=== PATIENT | female | born 1995 | race Caucasian/White ===

== ENCOUNTER → 2020-11-15 | Outpatient (CLI) | payer OTHER ==
[2020-11-15 16:11] LABS: BASO # 0.1 x10^3/uL (0.0-0.2); BASO % 1 % (0-3); EOS # 0.1 x10^3/uL (0.0-0.7); EOS % 1 % (0-3); HEMATOCRIT 40.5 % (36.0-47.0); HEMOGLOBIN 13.9 g/dL (12.0-15.5); LYMPH # 2.4 x10^3/uL (1.0-4.8); LYMPH % 24 % (24-48); MEAN CORPUSCULAR HEMOGLOBIN 30 pg (25-35); MEAN CORPUSCULAR HGB CONC 34 g/dL (31-37); MEAN CORPUSCULAR VOLUME 88 fL (79-100); MONO # 0.9 x10^3/uL (0.0-1.1); MONO % 8 % (0-9); NEUT # 6.9 x10^3/uL (1.8-7.7); NEUT % 67 % (31-73); PLATELET COUNT 274 x10^3/uL (140-400); RED BLOOD COUNT 4.58 x10^6/uL (3.50-5.40); RED CELL DISTRIBUTION WIDTH 12.2 % (11.5-14.5); WHITE BLOOD COUNT 10.3 x10^3/uL (4.0-11.0)
== END ==
LOC: LAB 15:34
PROVIDERS: ATTEND Obstetrics & Gynecology
DX: Z32.01 Encounter for pregnancy test, result positive (principal)
CPT/HCPCS: 36415; 85025; 86592; 86703; 86762; 86850; 86900; 86901; 87340

== ENCOUNTER 2020-11-22 09:35 | Emergency (ER) | payer OTHER ==
[~2020-11-22] VITALS: Ht 162.6 cm; Wt 83.0 kg
[2020-11-22 09:53] LABS: BILIRUBIN,URINE NEGATIVE (NEG); CLARITY,URINE TURBID; COLOR,URINE YELLOW; NITRITE,URINE NEGATIVE (NEG); PH,URINE 7.5 (<5.0-8.0); PROTEIN,URINE NEGATIVE (NEG-TRACE); UROBILINOGEN,URINE 0.2 mg/dL (0.2 mg/dL)
[2020-11-22 10:09] LABS: AMORPHOUS SEDIMENT,UR PRESENT /HPF
[2020-11-22 10:10] LABS: BACTERIA,URINE MODERATE /HPF (0-FEW); RBC,URINE 0 /HPF (0-2)
[2020-11-22 10:19] VITALS: BP 128/54
[2020-11-22] MEDS ORDERED: CEPH500C PO (10:30)
--- NOTE | 2020-11-22 10:30 | PHYS DOC ---
Past Medical History Past Medical History: No Pertinent History Past Surgical History: Cholecystectomy Smoking Status: Never Smoker Alcohol Use: None General Adult EDM: Chief Complaint: PAIN ON URINATION HPI: HPI: Patient is a 25 year old female who presented to ER due to burning with urination, frequency for 2 weeks. Patient at 9 weeks , her DATA SERVICES DEVELOPER doctor is out of town so she came here for evaluation. Patient denies any abdominal pain, no pelvic pain, no vaginal bleeding or discharge. Patient denies any nausea vomiting. Review of Systems: Review of Systems: Constitutional: Denies fever or chills. [] Eyes: Denies change in visual acuity. [] HENT: Denies nasal congestion or sore throat. [] Respiratory: Denies cough or shortness of breath. [] Cardiovascular: Denies chest pain or edema. [] GI: Denies abdominal pain, nausea, vomiting, bloody stools or diarrhea. [] : Positive for dysuria and frequency. Musculoskeletal: Denies back pain or joint pain. [] Integument: Denies rash. [] Neurologic: Denies headache, focal weakness or sensory changes. [] Endocrine: Denies polyuria or polydipsia. [] Lymphatic: Denies swollen glands. [] Psychiatric: Denies depression or anxiety. [] Heart Score: C/O Chest Pain: N/A Risk Factors: Risk Factors: DM, Current or recent (<one month) smoker, HTN, HLP, family history of CAD, obesity. Risk Scores: Score 0 - 3: 2.5% MACE over next 6 weeks - Discharge Home Score 4 - 6: 20.3% MACE over next 6 weeks - Admit for Clinical Observation Score 7 - 10: 72.7% MACE over next 6 weeks - Early Invasive Strategies Physical Exam: PE: Constitutional: Well developed, well nourished, no acute distress, non-toxic appearance. [] HENT: Normocephalic, atraumatic, bilateral external ears normal, oropharynx moist, no oral exudates, nose normal. [] Eyes: PERRLA, EOMI, conjunctiva normal, no discharge. [] Neck: Normal range of motion, no tenderness, supple, no stridor. [] Cardiovascular:Heart rate regular rhythm, no murmur [] Lungs & Thorax: Bilateral breath sounds clear to auscultation [] Abdomen: Bowel sounds normal, soft, no tenderness, no masses, no pulsatile masses. [] Skin: Warm, dry, no erythema, no rash. [] Back: No tenderness, no CVA tenderness. [] Extremities: No tenderness, no cyanosis, no clubbing, ROM intact, no edema. [] Neurologic: Alert and oriented X 3, normal motor function, normal sensory function, no focal deficits noted. [] Psychologic: Affect normal, judgement normal, mood normal. [] Current Patient Data: Labs: Laboratory Tests Test 11/22/20 09:48 11/22/20 09:49 Urine Collection Type Void Urine Color Yellow Urine Clarity Turbid Urine pH 7.5 (<5.0-8.0) Urine Specific [place] 1.015 (1.000-1.030) Urine Protein Negative mg/dL (NEG-TRACE) Urine Glucose (UA) Negative mg/dL (NEG) Urine Ketones (Stick) Negative mg/dL (NEG) Urine Blood Negative (NEG) Urine Nitrite Negative (NEG) Urine Bilirubin Negative (NEG) Urine Urobilinogen Dipstick 0.2 mg/dL (0.2 mg/dL) Urine Leukocyte Esterase Small (NEG) Urine RBC 0 /HPF (0-2) Urine WBC 5-10 /HPF (0-4) Urine Squamous Epithelial Cells Few /LPF Urine Amorphous Sediment Present /HPF Urine Bacteria Moderate /HPF (0-FEW) Urine Mucus Slight /LPF POC Urine HCG, Qualitative Hcg positive (Negative) Vital Signs: Vital Signs Date Time Temp Pulse Resp B/P (MAP) Pulse Ox O2 Delivery O2 Flow Rate FiO2 11/22/20 10:19 97.5 68 16 128/54 (78) 98 Room Air 97.5 EKG: EKG: [] Radiology/Procedures: Radiology/Procedures: [] Course & Med Decision Making: Course & Med Decision Making Pertinent Labs and Imaging studies reviewed. (See chart for details) Patient is a 25-year-old female who presented to ER due to urinary symptom, she has not with , no pelvic pain, no vaginal bleeding. Patient has UTI, she will need to be on antibiotic with Keflex, she will need to follow her DATA SERVICES DEVELOPER doctor next week. Vanceon Disclaimer: Lilian Disclaimer: This electronic medical record was generated, in whole or in part, using a voice recognition dictation system. Departure Departure Impression: Primary Impression: Urinary tract infection Disposition: 01 DC HOME SELF CARE/HOMELESS Condition: STABLE Referrals: NO PCP (PCP) NAVI MALHOTRA Jr, MD PLEASE CALL YOUR DATA SERVICES DEVELOPER DOCTOR FOR FOLLOW UP ON THURSDAY Patient Instructions: Urinary Tract Infection Additional Instructions: Thank you for visiting our Emergency Department. We appreciate you trusting us with your care. If any additional problems come up don't hesitate to return to visit us. Please follow up with your primary care provider so they can plan additional care if needed and know about the problem that you had. If symptoms worsen come back to the Emergency Department. Any concerning symptoms that start such as chest pain, shortness of air, weakness or numbness on one side of the body, running high fevers or any other concerning symptoms return to the ER. Scripts Cephalexin (CEPHALEXIN) 500 Mg Capsule 1 CAP PO QID for 7 Days, #28 CAP Prov: DELTA DE LEON DO 11/22/20 DELTA DE LEON DO Nov 22, 2020 10:30
== END 2020-11-22 10:34 | disposition home or self-care (01) ==
LOC: ER 09:35
DX: O23.41 Unspecified infection of urinary tract in pregnancy, first trimester (principal); Z90.49 Acquired absence of other specified parts of digestive tract; Z3A.09 9 weeks gestation of pregnancy
CPT/HCPCS: 81001; 81025; 87086; 99283

== ENCOUNTER 2021-01-29 20:37 | Emergency (ER) | payer OTHER ==
[~2021-01-29] VITALS: Ht 162.6 cm; Wt 81.8 kg
[~2021-01-29 20:37] MED LIST: CEPH500C PO
[2021-01-29 21:29] LABS: BILIRUBIN,URINE SMALL (NEG); CLARITY,URINE CLOUDY; COLOR,URINE AMBER; NITRITE,URINE NEGATIVE (NEG); PROTEIN,URINE 30 mg/dL (NEG-TRACE)
[2021-01-29] MEDS ORDERED: IV NORMAL SALINE 1000ML BAG 1,000 ML IV SCH (21:30)
[2021-01-29 21:37] LABS: BACTERIA,URINE MODERATE /HPF (0-FEW); RBC,URINE 0 /HPF (0-2)
--- NOTE | 2021-01-29 21:44 | PHYS DOC ---
Past Medical History Past Medical History: No Pertinent History (LINETTE BUSH APRN) Past Surgical History: Cholecystectomy (LINETTE BUSH APRN) Smoking Status: Never Smoker Alcohol Use: None (LINETTE BUSH APRN) General Adult EDM: Chief Complaint: ABDOMINAL PAIN IN HPI: HPI: Patient is a 26 year old female who presents with 19 weeks today when having right lower abdominal pain that is sharp for the last 2 days. Hurts more with walking and going from laying to sitting. She rates her pain a 5 out of 10. She states is been constant. She states that she does have some nausea and vomiting but that is her normal symptoms. Only surgery she has had is a cholecystectomy. Her CONCRETE FORM SETTER AND FINISHER doctor is Dr. Crowley. She denies chest pain, shortness of air, fever, cough, diarrhea, constipation, vaginal discharge, vaginal bleeding, headache, dizziness. Patient is refusing any Tylenol for pain at this time. (LINETTE BUSH APRN) Review of Systems: Review of Systems: Constitutional: Denies fever or chills. [] Eyes: Denies change in visual acuity. [] HENT: Denies nasal congestion or sore throat. [] Respiratory: Denies cough or shortness of breath. [] Cardiovascular: Denies chest pain or edema. [] GI: + Right lower quadrant abdominal pain, denies nausea, vomiting, bloody stools or diarrhea. [] : Denies dysuria. [] Musculoskeletal: Denies back pain or joint pain. [] Integument: Denies rash. [] Neurologic: Denies headache, focal weakness or sensory changes. [] Endocrine: Denies polyuria or polydipsia. [] Lymphatic: Denies swollen glands. [] Psychiatric: Denies depression or anxiety. [] (LINETTE BUSH APRN) Heart Score: C/O Chest Pain: No Risk Factors: Risk Factors: DM, Current or recent (<one month) smoker, HTN, HLP, family history of CAD, obesity. Risk Scores: Score 0 - 3: 2.5% MACE over next 6 weeks - Discharge Home Score 4 - 6: 20.3% MACE over next 6 weeks - Admit for Clinical Observation Score 7 - 10: 72.7% MACE over next 6 weeks - Early Invasive Strategies (LINETTE BUSH MANAGER CLIENT) Current Medications: Current Medications Medications (Trade) Dose Ordered Sig/Rosangela Start Time Stop Time Status Last Admin Dose Admin Sodium Chloride 1,000 ml @ 1,000 mls/hr Q1H 01/29/21 21:30 01/29/21 22:29 UNV (LINETTE BUSH Patric MUNGUIAN) Physical Exam: PE: Constitutional: Well developed, well nourished, no acute distress, non-toxic appearance. [] HENT: Normocephalic, atraumatic, bilateral external ears normal, oropharynx moist, no oral exudates, nose normal. [] Eyes: PERRLA, EOMI, conjunctiva normal, no discharge. [] Neck: Normal range of motion, no tenderness, supple, no stridor. [] Cardiovascular:Heart rate regular rhythm, no murmur [] Lungs & Thorax: Bilateral breath sounds clear to auscultation [] Abdomen: Bowel sounds normal, soft, no tenderness, no masses, no pulsatile masses. [] Skin: Warm, dry, no erythema, no rash. [] Back: No tenderness, no CVA tenderness. [] Extremities: No tenderness, no cyanosis, no clubbing, ROM intact, no edema. [] Neurologic: Alert and oriented X 3, normal motor function, normal sensory function, no focal deficits noted. [] Psychologic: Affect normal, judgement normal, mood normal. [] Normal physical exam (LUCY BUSHBruce Spivey APRN) Current Patient Data: Labs: Laboratory Tests Test 01/29/21 20:40 Urine Collection Type Unknown Urine Color Maru Urine Clarity Cloudy Urine pH 6.0 (<5.0-8.0) Urine Specific [place] 1.025 (1.000-1.030) Urine Protein 30 mg/dL (NEG-TRACE) Urine Glucose (UA) Negative mg/dL (NEG) Urine Ketones (Stick) Trace mg/dL (NEG) Urine Blood Negative (NEG) Urine Nitrite Negative (NEG) Urine Bilirubin Small (NEG) Urine Urobilinogen Dipstick 1.0 mg/dL (0.2 mg/dL) Urine Leukocyte Esterase Small (NEG) Urine RBC 0 /HPF (0-2) Urine WBC 5-10 /HPF (0-4) Urine Squamous Epithelial Cells Many /LPF Urine Bacteria Moderate /HPF (0-FEW) Urine Mucus Marked /LPF Vital Signs: Vital Signs Date Time Temp Pulse Resp B/P (MAP) Pulse Ox O2 Delivery O2 Flow Rate FiO2 01/29/21 21:08 97.9 88 111/60 (77) 99 97.9 01/29/21 20:52 18 Room Air (LINETTE BUSH APRN) EKG: EKG: [] (LINETTE BUSH APRN) Radiology/Procedures: Radiology/Procedures: [] Impression: [facility] [address] [place] [address] IMAGING REPORT Signed PATIENT: RUPERTODECEMBER MACCOUNT: [id number] : 1995 LOCATION: ER AGE: 26 SEX: F EXAM STATUS: REG ER ORD. PHYSICIAN: LINETTE BUSH APRN REASON: ABD PAIN IN PROCEDURE: PREG MORE THAN OR EQ TO 14 WKS Exam: Ultrasound OB greater than 14 weeks Indication: Abdominal pain Technique: Real-time grayscale and color Doppler images of the pelvis were obtained by the department veterinary assistant technician. Comparisons: None FINDINGS: Within the uterus there is a single live intrauterine gestation with heart rate measured at 140 bpm. measurements as follows: BPD: 4.3 cm corresponding to 19 weeks 0 days Head circumference: 16.2 cm corresponding to 19 weeks 0 days Abdominal circumference: 13.5 cm corresponding to 19 weeks 0 days Femur length: 2.9 cm corresponding to 18 weeks 6 days Ultrasound gestational age: 19 weeks 0 days with sonographic estimated due date of 06/25/2021 Placenta is posterior and appears unremarkable. IMPRESSION: 1. Single live intrauterine gestation of 19 weeks 0 days by ultrasound with concordant ultrasound. 2. Dedicated survey is recommended in the nonemergent setting, if not already performed. Electronically signed by: Anne Childs MD (01/29/2021 10:34 PM) [facility] DICTATED and SIGNED BY: ANNE CHILDS MD DATE: 01/29/21 [id number] [facility] [address] [place] [address] IMAGING REPORT Signed PATIENT: RUPERTODECEMBER MACCOUNT: [id number] : 1995 LOCATION: ER AGE: 26 SEX: F EXAM STATUS: REG ER ORD. PHYSICIAN: LINETTE BUSH APRN REASON: check appendix. RLQ pain PROCEDURE: RIGHT LOWER QUANDRANT INDICATION: Reason: check appendix. RLQ pain / Spl. Instructions: / History: COMPARISON: None. FINDINGS: Focused ultrasound is obtained of the right lower quadrant of the abdomen. Right ovary is 30 x 18 x 20 mm with vascular flow seen. The appendix is not visualized and is likely obscured by bowel gas. IMPRESSION: * The appendix is obscured. * Vascular flow is seen to the right ovary. Electronically signed by: Josephine Carrero MD (01/29/2021 11:13 PM) DESKTOP- [id number] DICTATED and SIGNED BY: JOSEPHINE CARRERO MD DATE: 01/29/21 [id number] (LINETTE BUSH APRN) Course & Med Decision Making: Course & Med Decision Making Pertinent Labs and Imaging studies reviewed. (See chart for details) See HPI. Alert and oriented x4. Ambulatory with a steady gait. Abdomen is soft and only tender at right lower quadrant. No rebound tenderness. She is not guarding her abdomen. She denies any urinary symptoms. No CVA tenderness. Afebrile. Vital signs are within normal limits. Work is unremarkable except she does have slight increase in her white count. She is afebrile. Ultrasound shows no acute findings and states that the appendix is obscured. Patient does have a slight UTI of which I will treat her with antibiotics. I do not want to radiate the patient due to her being . I have explained to the patient that we are not CT in her due to radiation risk and that we could not get a good evaluation of her appendix. Patient is educated to follow-up with her OB doctor soon as possible and to return if she has severe vomiting, fever or severe pain. Patient states her u nderstanding. I have gone over this patient with Dr. Nation who agrees with this care plan. [] (LINETTE BUSH APRN) Course & Med Decision Making I oversaw on the above date of service of this patient and discussed the care with the FINANCIAL PROCESSING CLERK. I agree with the findings, plan of care, and disposition as documented. Electronically signed, Librado Nation DO (LIBRADO NATION DO) Lilian Disclaimer: Lilian Disclaimer: This electronic medical record was generated, in whole or in part, using a voice recognition dictation system. (LINETTE BUSH APRN) Departure Departure Impression: Primary Impression: Abdominal pain in Qualified Codes: O26.892 - Other specified related conditions, second trimester; R10.9 - Unspecified abdominal pain Additional Impression: UTI (urinary tract infection) during Qualified Codes: O23.40 - Unspecified infection of urinary tract in , unspecified trimester Disposition: HOME / SELF CARE / HOMELESS Condition: STABLE Referrals: NO PCP (PCP) NAVI CROWLEY Jr, MD Patient Instructions: Abdominal Pain During , - Urinary Tract Infection Additional Instructions: Follow-up with your OB doctor as soon as possible. Return for vomiting, fever or severe pain. Drink plenty of fluids. Take medication as prescribed and with food. Scripts Cephalexin (CEPHALEXIN) 500 Mg Capsule 1 CAP PO TID for 7 Days, #21 CAP Prov: LINETTE BUSH APRN 01/29/21 LINETTE BUSH APRN January 29, 2021 21:44 LIBRADO NATION DO February 01, 2021 09:58
[2021-01-29 22:27] LABS: BASO % 0 % (0-3); EOS # 0.1 x10^3/uL (0.0-0.7); EOS % 1 % (0-3); HEMATOCRIT 33.6 % (36.0-47.0); HEMOGLOBIN 11.3 g/dL (12.0-15.5); LYMPH # 3.4 x10^3/uL (1.0-4.8); LYMPH % 25 % (24-48); MEAN CORPUSCULAR HEMOGLOBIN 31 pg (25-35); MEAN CORPUSCULAR HGB CONC 34 g/dL (31-37); MEAN CORPUSCULAR VOLUME 91 fL (79-100); MONO # 0.8 x10^3/uL (0.0-1.1); MONO % 6 % (0-9); NEUT # 9.1 x10^3/uL (1.8-7.7); NEUT % 68 % (31-73); PLATELET COUNT 246 x10^3/uL (140-400); RED BLOOD COUNT 3.71 x10^6/uL (3.50-5.40); RED CELL DISTRIBUTION WIDTH 12.9 % (11.5-14.5); WHITE BLOOD COUNT 13.3 x10^3/uL (4.0-11.0)
[2021-01-29 22:37] LABS: CALCIUM 8.3 mg/dL (8.5-10.1); CREATININE 0.5 mg/dL (0.6-1.0); GFR 150.3; POTASSIUM 3.7 mmol/L (3.5-5.1)
--- NOTE | 2021-01-29 22:37 | RAD ---
Exam: Ultrasound OB greater than 14 weeks Indication: Abdominal pain Technique: Real-time grayscale and color Doppler images of the pelvis were obtained by the department exhibit electrician. Comparisons: None FINDINGS: Within the uterus there is a single live intrauterine gestation with heart rate measured at 140 bpm. measurements as follows: BPD: 4.3 cm corresponding to 19 weeks 0 days Head circumference: 16.2 cm corresponding to 19 weeks 0 days Abdominal circumference: 13.5 cm corresponding to 19 weeks 0 days Femur length: 2.9 cm corresponding to 18 weeks 6 days Ultrasound gestational age: 19 weeks 0 days with sonographic estimated due date of 06/25/2021 Placenta is posterior and appears unremarkable. IMPRESSION: 1. Single live intrauterine gestation of 19 weeks 0 days by ultrasound with concordant ultrasound. 2. Dedicated survey is recommended in the nonemergent setting, if not already performed. Electronically signed by: Anne Michael MD (01/29/2021 10:34 PM) LISA
[2021-01-29 22:43] LABS: ALBUMIN 3.4 g/dL (3.4-5.0); ALBUMIN/GLOBULIN RATIO 1.1 (1.0-1.7); TOTAL BILIRUBIN 0.3 mg/dL (0.2-1.0); TOTAL PROTEIN 6.4 g/dL (6.4-8.2)
--- NOTE | 2021-01-29 23:16 | RAD ---
INDICATION: Reason: check appendix. RLQ pain / Spl. Instructions: / History: COMPARISON: None. FINDINGS: Focused ultrasound is obtained of the right lower quadrant of the abdomen. Right ovary is 30 x 18 x 20 mm with vascular flow seen. The appendix is not visualized and is likely obscured by bowel gas. IMPRESSION: * The appendix is obscured. * Vascular flow is seen to the right ovary. Electronically signed by: Tico Meadows MD (01/29/2021 11:13 PM) [id number]
[2021-01-29] MEDS ORDERED: CEPH500C PO (23:22)
[2021-01-29 23:28] VITALS: BP 119/58
== END 2021-01-29 23:30 | disposition home or self-care (01) ==
LOC: ER 20:37
DX: O23.42 Unspecified infection of urinary tract in pregnancy, second trimester (principal); R11.2 Nausea with vomiting, unspecified; Z3A.19 19 weeks gestation of pregnancy; Z90.49 Acquired absence of other specified parts of digestive tract
CPT/HCPCS: 36415; 76805; 80053; 81001; 84702; 85025; 86850; 86900; 86901; 87086; 93975; 96360; 99285; J7030; 99284-25

== ENCOUNTER 2021-02-17 12:24 | Inpatient (IN) | payer OTHER ==
[~2021-02-17] VITALS: Ht 162.6 cm; Wt 75.7 kg
[2021-02-17] MEDS: IV RINGERS,LACTATED 1000ML 1,000 ML IV SCH ×3 (12:40→23:06)
[2021-02-17 13:15] LABS: BASO # 0.1 x10^3/uL (0.0-0.2); BASO % 1 % (0-3); EOS % 0 % (0-3); HEMATOCRIT 35.9 % (36.0-47.0); HEMOGLOBIN 12.1 g/dL (12.0-15.5); LYMPH % 15 % (24-48); MEAN CORPUSCULAR HEMOGLOBIN 30 pg (25-35); MEAN CORPUSCULAR HGB CONC 34 g/dL (31-37); MEAN CORPUSCULAR VOLUME 90 fL (79-100); MONO # 0.7 x10^3/uL (0.0-1.1); MONO % 5 % (0-9); NEUT % 79 % (31-73); PLATELET COUNT 290 x10^3/uL (140-400); RED BLOOD COUNT 3.99 x10^6/uL (3.50-5.40); WHITE BLOOD COUNT 12.7 x10^3/uL (4.0-11.0)
[2021-02-17] MEDS: ONDANSETRON PF 4 MG/2 ML VIAL. IVP PRN ×2 (13:17→19:18)
[2021-02-17 13:26] LABS: CALCIUM 9.3 mg/dL (8.5-10.1); CREATININE 0.6 mg/dL (0.6-1.0); GFR 121.8; POTASSIUM 3.4 mmol/L (3.5-5.1)
--- NOTE | 2021-02-17 13:29 | PDOC1 ---
OB - History Hx of Present Care: Good Care Ultrasounds: Normal mid trimester US Obstetrical Complications: None Medical Complications: None Past Family/Social History * Past Medical, Surgical, Family and Obstetric Histories reviewed from chart. Rubella: Not Immune RPR/VDRL: Negative GBS Status: Unknown HBsAG: Negative OB - Chief Complaint & HPI Date of Admission: Date of Admission: Feb 17, 2021 at 12:24 Chief Complaint/History : 1 Para: 0 EGA: 21 Reason for admission: observation (hyperemesis with 10 lbs weight loss in 2 weeks) Admission Nurse Assessment Rev: Yes OB - Admission Exam Physical Exam HEENT: Other (dry mucous membranes) Heart: Normal S1, Normal S2 (with mild tachycardia) Lungs: Clear Abdomen: Gravid, Soft, Tender Extremities: Normal Pulses, No tenderness or swelling Reflexes: Normal Cervical Dilatation: None Effacement: 0% Station: Ballotable Membranes: Intact Heart Rate: Normal Contractions on Admission: None Text A: 21 wks IUP Hyperemesis Gravidarum with weight loss and electrolyte imbalance P: 23 hour Observation for IV hydration and antiemetics. Repeat labs in NAVI Howell Jr, MD Feb 17, 2021 13:29
[2021-02-17 13:31] LABS: ALBUMIN 3.7 g/dL (3.4-5.0); ALBUMIN/GLOBULIN RATIO 1.2 (1.0-1.7); TOTAL BILIRUBIN 0.5 mg/dL (0.2-1.0); TOTAL PROTEIN 6.7 g/dL (6.4-8.2)
[2021-02-17] MEDS: IV DEXTROSE 5%-LACT RINGERS 1,000 ML IV SCH ×3 (14:00→22:00)
[2021-02-17 18:27] LABS: BILIRUBIN,URINE NEGATIVE (NEG); CLARITY,URINE TURBID; COLOR,URINE YELLOW; NITRITE,URINE NEGATIVE (NEG); PH,URINE 8.5 (<5.0-8.0); PROTEIN,URINE 30 mg/dL (NEG-TRACE); UROBILINOGEN,URINE 0.2 mg/dL (0.2 mg/dL)
[2021-02-17 18:39] LABS: AMORPHOUS SEDIMENT,UR PRESENT /HPF
[2021-02-17 18:40] LABS: BACTERIA,URINE 0 /HPF (0-FEW); RBC,URINE 0 /HPF (0-2)
[2021-02-17] MEDS: CALCIUM CARBONATE 500 MG TAB.CHEW PO PRN (21:46)
[2021-02-18] MEDS: ONDANSETRON PF 4 MG/2 ML VIAL. IVP PRN ×4 (01:20→22:43)
[2021-02-18] MEDS: CALCIUM CARBONATE 500 MG TAB.CHEW PO PRN ×4 (01:34→22:43)
[2021-02-18 04:20] LABS: ALBUMIN 2.8 g/dL (3.4-5.0); CALCIUM 8.7 mg/dL (8.5-10.1); CREATININE 0.5 mg/dL (0.6-1.0); GFR 150.3; POTASSIUM 3.2 mmol/L (3.5-5.1); TOTAL BILIRUBIN 0.4 mg/dL (0.2-1.0); TOTAL PROTEIN 5.6 g/dL (6.4-8.2)
[2021-02-18] MEDS: IV RINGERS,LACTATED 1000ML 1,000 ML IV SCH ×3 (06:59→22:43)
[2021-02-18] MEDS ORDERED: ACETAMINOPHEN 325 MG TABLET. PO PRN (07:45)
[2021-02-18 09:20] LABS: BILIRUBIN,URINE NEGATIVE (NEG); CLARITY,URINE TURBID; COLOR,URINE YELLOW; NITRITE,URINE NEGATIVE (NEG); PH,URINE 8.5 (<5.0-8.0); PROTEIN,URINE NEGATIVE (NEG-TRACE)
[2021-02-18 09:28] LABS: AMORPHOUS SEDIMENT,UR PRESENT /HPF; BACTERIA,URINE MODERATE /HPF (0-FEW); RBC,URINE RARE /HPF (0-2)
[2021-02-18] MEDS ORDERED: ACETAMINOPHEN 650 MG SUPP.RECT. PR PRN (10:15)
--- NOTE | 2021-02-18 10:18 | PDOC ---
OB Progress Note Date of Service 02/18/21 Time of Evaluation 1015 Notes Pt. with nausea and unable to tolerate liquids. She reports more GERD. Will add Reglan for nausea, Protonix for GERD and IV abx for possible pyelonephritis. Lab Laboratory Tests Test 02/17/21 12:55 02/17/21 18:01 02/18/21 03:30 02/18/21 08:45 White Blood Count 12.7 x10^3/uL (4.0-11.0) Red Blood Count 3.99 x10^6/uL (3.50-5.40) Hemoglobin 12.1 g/dL (12.0-15.5) Hematocrit 35.9 % (36.0-47.0) Mean Corpuscular Volume 90 fL (79-100) Mean Corpuscular Hemoglobin 30 pg (25-35) Mean Corpuscular Hemoglobin Concent 34 g/dL (31-37) Red Cell Distribution Width 13.0 % (11.5-14.5) Platelet Count 290 x10^3/uL (140-400) Neutrophils (%) (Auto) 79 % (31-73) Lymphocytes (%) (Auto) 15 % (24-48) Monocytes (%) (Auto) 5 % (0-9) Eosinophils (%) (Auto) 0 % (0-3) Basophils (%) (Auto) 1 % (0-3) Neutrophils # (Auto) 10.0 x10^3/uL (1.8-7.7) Lymphocytes # (Auto) 2.0 x10^3/uL (1.0-4.8) Monocytes # (Auto) 0.7 x10^3/uL (0.0-1.1) Eosinophils # (Auto) 0.0 x10^3/uL (0.0-0.7) Basophils # (Auto) 0.1 x10^3/uL (0.0-0.2) Sodium Level 140 mmol/L (136-145) 140 mmol/L (136-145) Potassium Level 3.4 mmol/L (3.5-5.1) 3.2 mmol/L (3.5-5.1) Chloride Level 102 mmol/L (98-107) 106 mmol/L (98-107) Carbon Dioxide Level 23 mmol/L (21-32) 25 mmol/L (21-32) Anion Gap 15 (6-14) 9 (6-14) Blood Urea Nitrogen 8 mg/dL (7-20) 5 mg/dL (7-20) Creatinine 0.6 mg/dL (0.6-1.0) 0.5 mg/dL (0.6-1.0) Estimated GFR (Cockcroft-Gault) 121.8 150.3 BUN/Creatinine Ratio 13 (6-20) 10 (6-20) Glucose Level 115 mg/dL (70-99) 102 mg/dL (70-99) Calcium Level 9.3 mg/dL (8.5-10.1) 8.7 mg/dL (8.5-10.1) Total Bilirubin 0.5 mg/dL (0.2-1.0) 0.4 mg/dL (0.2-1.0) Aspartate Amino Transf (AST/SGOT) 59 U/L (15-37) 56 U/L (15-37) Alanine Aminotransferase (ALT/SGPT) 158 U/L (14-59) 138 U/L (14-59) Alkaline Phosphatase 54 U/L (46-116) 44 U/L (46-116) Total Protein 6.7 g/dL (6.4-8.2) 5.6 g/dL (6.4-8.2) Albumin 3.7 g/dL (3.4-5.0) 2.8 g/dL (3.4-5.0) Albumin/Globulin Ratio 1.2 (1.0-1.7) 1.0 (1.0-1.7) Urine Color Yellow Yellow Urine Clarity Turbid Turbid Urine pH 8.5 (<5.0-8.0) 8.5 (<5.0-8.0) Urine Specific [place] >=1.030 (1.000-1.030) 1.010 (1.000-1.030) Urine Protein 30 mg/dL (NEG-TRACE) Negative mg/dL (NEG-TRACE) Urine Glucose (UA) 100 mg/dL (NEG) Negative mg/dL (NEG) Urine Ketones (Stick) 40 mg/dL (NEG) 15 mg/dL (NEG) Urine Blood Negative (NEG) Negative (NEG) Urine Nitrite Negative (NEG) Negative (NEG) Urine Bilirubin Negative (NEG) Negative (NEG) Urine Urobilinogen Dipstick 0.2 mg/dL (0.2 mg/dL) 1.0 mg/dL (0.2 mg/dL) Urine Leukocyte Esterase Small (NEG) Large (NEG) Urine RBC 0 /HPF (0-2) Rare /HPF (0-2) Urine WBC 1-4 /HPF (0-4) 5-10 /HPF (0-4) Urine Squamous Epithelial Cells Mod /LPF Many /LPF Urine Transitional Epithelial Cells Few /LPF Urine Amorphous Sediment Present /HPF Present /HPF Urine Bacteria 0 /HPF (0-FEW) Moderate /HPF (0-FEW) Urine Mucus Marked /LPF Amylase Level 22 U/L (25-115) Lipase 44 U/L (73-393) Urine Collection Type Unknown Laboratory Tests Test 02/17/21 12:55 02/17/21 18:01 02/18/21 03:30 02/18/21 08:45 White Blood Count 12.7 x10^3/uL (4.0-11.0) Red Blood Count 3.99 x10^6/uL (3.50-5.40) Hemoglobin 12.1 g/dL (12.0-15.5) Hematocrit 35.9 % (36.0-47.0) Mean Corpuscular Volume 90 fL (79-100) Mean Corpuscular Hemoglobin 30 pg (25-35) Mean Corpuscular Hemoglobin Concent 34 g/dL (31-37) Red Cell Distribution Width 13.0 % (11.5-14.5) Platelet Count 290 x10^3/uL (140-400) Neutrophils (%) (Auto) 79 % (31-73) Lymphocytes (%) (Auto) 15 % (24-48) Monocytes (%) (Auto) 5 % (0-9) Eosinophils (%) (Auto) 0 % (0-3) Basophils (%) (Auto) 1 % (0-3) Neutrophils # (Auto) 10.0 x10^3/uL (1.8-7.7) Lymphocytes # (Auto) 2.0 x10^3/uL (1.0-4.8) Monocytes # (Auto) 0.7 x10^3/uL (0.0-1.1) Eosinophils # (Auto) 0.0 x10^3/uL (0.0-0.7) Basophils # (Auto) 0.1 x10^3/uL (0.0-0.2) Sodium Level 140 mmol/L (136-145) 140 mmol/L (136-145) Potassium Level 3.4 mmol/L (3.5-5.1) 3.2 mmol/L (3.5-5.1) Chloride Level 102 mmol/L (98-107) 106 mmol/L (98-107) Carbon Dioxide Level 23 mmol/L (21-32) 25 mmol/L (21-32) Anion Gap 15 (6-14) 9 (6-14) Blood Urea Nitrogen 8 mg/dL (7-20) 5 mg/dL (7-20) Creatinine 0.6 mg/dL (0.6-1.0) 0.5 mg/dL (0.6-1.0) Estimated GFR (Cockcroft-Gault) 121.8 150.3 BUN/Creatinine Ratio 13 (6-20) 10 (6-20) Glucose Level 115 mg/dL (70-99) 102 mg/dL (70-99) Calcium Level 9.3 mg/dL (8.5-10.1) 8.7 mg/dL (8.5-10.1) Total Bilirubin 0.5 mg/dL (0.2-1.0) 0.4 mg/dL (0.2-1.0) Aspartate Amino Transf (AST/SGOT) 59 U/L (15-37) 56 U/L (15-37) Alanine Aminotransferase (ALT/SGPT) 158 U/L (14-59) 138 U/L (14-59) Alkaline Phosphatase 54 U/L (46-116) 44 U/L (46-116) Total Protein 6.7 g/dL (6.4-8.2) 5.6 g/dL (6.4-8.2) Albumin 3.7 g/dL (3.4-5.0) 2.8 g/dL (3.4-5.0) Albumin/Globulin Ratio 1.2 (1.0-1.7) 1.0 (1.0-1.7) Urine Color Yellow Yellow Urine Clarity Turbid Turbid Urine pH 8.5 (<5.0-8.0) 8.5 (<5.0-8.0) Urine Specific [place] >=1.030 (1.000-1.030) 1.010 (1.000-1.030) Urine Protein 30 mg/dL (NEG-TRACE) Negative mg/dL (NEG-TRACE) Urine Glucose (UA) 100 mg/dL (NEG) Negative mg/dL (NEG) Urine Ketones (Stick) 40 mg/dL (NEG) 15 mg/dL (NEG) Urine Blood Negative (NEG) Negative (NEG) Urine Nitrite Negative (NEG) Negative (NEG) Urine Bilirubin Negative (NEG) Negative (NEG) Urine Urobilinogen Dipstick 0.2 mg/dL (0.2 mg/dL) 1.0 mg/dL (0.2 mg/dL) Urine Leukocyte Esterase Small (NEG) Large (NEG) Urine RBC 0 /HPF (0-2) Rare /HPF (0-2) Urine WBC 1-4 /HPF (0-4) 5-10 /HPF (0-4) Urine Squamous Epithelial Cells Mod /LPF Many /LPF Urine Transitional Epithelial Cells Few /LPF Urine Amorphous Sediment Present /HPF Present /HPF Urine Bacteria 0 /HPF (0-FEW) Moderate /HPF (0-FEW) Urine Mucus Marked /LPF Amylase Level 22 U/L (25-115) Lipase 44 U/L (73-393) Urine Collection Type Unknown Medications Current Medications Ringer's Solution 1,000 ml @ 125 mls/hr Q8H IV Last administered on 02/18/21at 06:59; Start 02/17/21 at 13:00 Ondansetron HCl (Zofran) 8 mg PRN Q6HRS PRN IVP NAUSEA/VOMITING Last administered on 02/18/21at 07:40; Start 02/17/21 at 13:00 Dextrose/Lactated Ringer's 1,000 ml @ 250 mls/hr Q4H IV Last administered on 02/17/21at 14:00; Start 02/17/21 at 14:00 Calcium Carbonate/ Glycine (Tums) 500 mg PRN AFTMEALHC PRN PO INDIGESTION Last administered on 02/18/21at 08:01; Start 02/17/21 at 21:45 Acetaminophen (Tylenol) 650 mg PRN Q6HRS PRN PO MILD PAIN / TEMP > 100.3'F; Start 02/18/21 at 07:45 Active Scripts Active Cephalexin 500 Mg Capsule 1 Cap PO TID 7 Days Cephalexin 500 Mg Capsule 1 Cap PO QID 7 Days Exam Abd: soft, mild LLQ tenderness; Jacob. CVA tenderness L>R. Assessment 1. 21 wks IUP Hyperemesis Gravidarum Pyelonephritis Plan of Care: Continue current Tx, Mgmt (IV abx, IV Protonix and add Reglan for nausea.) NAVI MALHOTRA Jr, MD Feb 18, 2021 10:18
[2021-02-18] MEDS: PANTOPRAZOLE IV PUSH 40 MG VIAL. IVP SCH (10:42)
[2021-02-18] MEDS: METOCLOPRAMIDE HCL 10 MG/2 ML VIAL. IVP PRN ×2 (10:51→19:34)
[2021-02-18] MEDS: cefTRIAXone IV Push 1 GM VIAL. IVP SCH (10:52)
[2021-02-18] MEDS ORDERED: ONDA4TAB7 PO (16:08)
[2021-02-18] MEDS ORDERED: PYRI50CA PO (16:08)
[2021-02-18 16:10] VITALS: BP 105/58
[2021-02-18 22:46] VITALS: BP 102/56
[2021-02-19] MEDS: METOCLOPRAMIDE HCL 10 MG/2 ML VIAL. IVP PRN (04:27)
[2021-02-19 04:32] VITALS: BP 101/56
[2021-02-19] MEDS: IV RINGERS,LACTATED 1000ML 1,000 ML IV SCH ×3 (06:45→22:59)
[2021-02-19] MEDS: PANTOPRAZOLE IV PUSH 40 MG VIAL. IVP SCH (07:38)
[2021-02-19 07:43] VITALS: BP 111/54
[2021-02-19] MEDS: cefTRIAXone IV Push 1 GM VIAL. IVP SCH (11:04)
[2021-02-19 15:18] VITALS: BP 110/61
--- NOTE | 2021-02-19 16:55 | PDOC ---
OB Progress Note Date of Service 02/19/21 Time of Evaluation 1650 Notes Pt. feeling better and tolerating liquids. GERD has improved. Abd/back pain improving. Lab Laboratory Tests Test 02/17/21 18:01 02/18/21 03:30 02/18/21 08:45 Urine Color Yellow Yellow Urine Clarity Turbid Turbid Urine pH 8.5 (<5.0-8.0) 8.5 (<5.0-8.0) Urine Specific [place] >=1.030 (1.000-1.030) 1.010 (1.000-1.030) Urine Protein 30 mg/dL (NEG-TRACE) Negative mg/dL (NEG-TRACE) Urine Glucose (UA) 100 mg/dL (NEG) Negative mg/dL (NEG) Urine Ketones (Stick) 40 mg/dL (NEG) 15 mg/dL (NEG) Urine Blood Negative (NEG) Negative (NEG) Urine Nitrite Negative (NEG) Negative (NEG) Urine Bilirubin Negative (NEG) Negative (NEG) Urine Urobilinogen Dipstick 0.2 mg/dL (0.2 mg/dL) 1.0 mg/dL (0.2 mg/dL) Urine Leukocyte Esterase Small (NEG) Large (NEG) Urine RBC 0 /HPF (0-2) Rare /HPF (0-2) Urine WBC 1-4 /HPF (0-4) 5-10 /HPF (0-4) Urine Squamous Epithelial Cells Mod /LPF Many /LPF Urine Transitional Epithelial Cells Few /LPF Urine Amorphous Sediment Present /HPF Present /HPF Urine Bacteria 0 /HPF (0-FEW) Moderate /HPF (0-FEW) Urine Mucus Marked /LPF Sodium Level 140 mmol/L (136-145) Potassium Level 3.2 mmol/L (3.5-5.1) Chloride Level 106 mmol/L (98-107) Carbon Dioxide Level 25 mmol/L (21-32) Anion Gap 9 (6-14) Blood Urea Nitrogen 5 mg/dL (7-20) Creatinine 0.5 mg/dL (0.6-1.0) Estimated GFR (Cockcroft-Gault) 150.3 BUN/Creatinine Ratio 10 (6-20) Glucose Level 102 mg/dL (70-99) Calcium Level 8.7 mg/dL (8.5-10.1) Total Bilirubin 0.4 mg/dL (0.2-1.0) Aspartate Amino Transf (AST/SGOT) 56 U/L (15-37) Alanine Aminotransferase (ALT/SGPT) 138 U/L (14-59) Alkaline Phosphatase 44 U/L (46-116) Total Protein 5.6 g/dL (6.4-8.2) Albumin 2.8 g/dL (3.4-5.0) Albumin/Globulin Ratio 1.0 (1.0-1.7) Amylase Level 22 U/L (25-115) Lipase 44 U/L (73-393) Urine Collection Type Unknown Medications Current Medications Ringer's Solution 1,000 ml @ 125 mls/hr Q8H IV Last administered on 02/19/21 15:14; Start 02/17/21 at 13:00 Ondansetron HCl (Zofran) 8 mg PRN Q6HRS PRN IVP NAUSEA/VOMITING Last adm inistered on 02/18/21 22:43; Start 02/17/21 at 13:00 Dextrose/Lactated Ringer's 1,000 ml @ 250 mls/hr Q4H IV Last administered on 02/17/21 14:00; Start 02/17/21 at 14:00; Stop 02/18/21 at 13:04; Status DC Calcium Carbonate/ Glycine (Tums) 500 mg PRN AFTMEALHC PRN PO INDIGESTION Last administered on 02/18/21 22:43; Start 02/17/21 at 21:45 Acetaminophen (Tylenol) 650 mg PRN Q6HRS PRN PO MILD PAIN / TEMP > 100.3'F Last administered on 02/19/21 14:11; Start 02/18/21 at 07:45 Ceftriaxone Sodium (Rocephin) 1 gm Q24H IVP Last administered on 02/19/21 11:04; Start 02/18/21 at 11:00 Metoclopramide HCl (Reglan Vial) 10 mg PRN Q8HRS PRN IVP NAUSEA/VOMITING-2ND CHOICE Last administered on 02/19/21 04:27; Start 02/18/21 at 10:15 Pantoprazole Sodium (PROTONIX VIAL for IV PUSH) 40 mg DAILYAC IVP Last administered on 02/19/21 07:38; Start 02/18/21 at 11:00 Acetaminophen (Tylenol Supp) 650 mg PRN Q6HRS PRN NE MILD PAIN / TEMP > 100.3'F Last administered on 02/18/21at 19:40; Start 02/18/21 at 10:15 Active Scripts Active Reported Zofran (Ondansetron Hcl) 4 Mg Tablet 8 Mg PO TID PRN Vitamin B-6 (Pyridoxine Hcl) 50 Mg Capsule 1 Cap PO TID 30 Days Exam Abd: soft, mild tenderness, Mild CVA tenderness Assessment 21 wks IUP Hyperemesis Gravidarum with electrolyte imbalance Plan of Care: Continue current Tx, Mgmt NAVI MALHOTRA Jr, MD Feb 19, 2021 16:55
[2021-02-19 20:15] VITALS: BP 110/51
[2021-02-19] MEDS: ONDANSETRON PF 4 MG/2 ML VIAL. IVP PRN (21:09)
[2021-02-19 23:05] VITALS: BP 100/50
[2021-02-20 03:10] VITALS: BP 86/48
[2021-02-20 07:43] VITALS: BP 102/54
[2021-02-20] MEDS: PANTOPRAZOLE IV PUSH 40 MG VIAL. IVP SCH (07:44)
[2021-02-20 10:50] LABS: BASO % 0 % (0-3); EOS % 1 % (0-3); HEMATOCRIT 30.7 % (36.0-47.0); HEMOGLOBIN 10.5 g/dL (12.0-15.5); LYMPH # 1.9 x10^3/uL (1.0-4.8); LYMPH % 26 % (24-48); MEAN CORPUSCULAR HEMOGLOBIN 31 pg (25-35); MEAN CORPUSCULAR HGB CONC 34 g/dL (31-37); MEAN CORPUSCULAR VOLUME 92 fL (79-100); MONO # 0.7 x10^3/uL (0.0-1.1); MONO % 9 % (0-9); NEUT # 4.7 x10^3/uL (1.8-7.7); NEUT % 64 % (31-73); PLATELET COUNT 198 x10^3/uL (140-400); RED BLOOD COUNT 3.35 x10^6/uL (3.50-5.40); RED CELL DISTRIBUTION WIDTH 12.5 % (11.5-14.5); WHITE BLOOD COUNT 7.3 x10^3/uL (4.0-11.0)
[2021-02-20 11:06] LABS: CALCIUM 8.3 mg/dL (8.5-10.1); CREATININE 0.6 mg/dL (0.6-1.0); GFR 121.8; POTASSIUM 3.1 mmol/L (3.5-5.1)
[2021-02-20] MEDS: cefTRIAXone IV Push 1 GM VIAL. IVP SCH (11:08)
[2021-02-20 11:16] VITALS: BP 114/59
[2021-02-20] MEDS: METOCLOPRAMIDE HCL 10 MG/2 ML VIAL. IVP PRN (12:30)
--- NOTE | 2021-02-20 15:58 | PDOC3 ---
OB DISCHARGE SUMMARY DATE OF ADMISSION: 02/18/21 DATE OF DISCHARGE: 02/20/21 REASON FOR ADMISSION: Observation/evaluation, Other (Hyperemesis Gravidarum and UTI) PROCEDURES: Mgmt of OB Complications DISCHARGE DIAGNOSIS: Hyperemesis Gravidarum, Others (UTI) DISCHARGE INFORMATION: Activity (ad billy), Diet (full liquids and advance as tolerated), Instructions HOSPITAL COURSE 21 wks IUP with hyperemesis gravidarum and UTI that was treated with IV antiemetics and IV abx. She was able to tolerate full liquids at discharge. NAVI MALHOTRA Jr, MD Feb 20, 2021 15:58
[2021-02-20] MEDS ORDERED: METO5VIA4 PO (16:03)
[2021-02-20] MEDS ORDERED: Pantoprazole Iv Push PO (16:03)
[2021-02-20] MEDS ORDERED: ONDA4TAB7 PO (16:03)
--- NOTE | 2021-02-20 16:04 | DISCH ---
DISCHARGE INSTRUCTIONS Condition on Discharge Condition on Discharge: Stable Activity After Discharge Activity Instructions for Disc: Activity as tolerated Lifting Instructions after Dis: No heavy lifting Driving Instructions after Dis: Do not drive today Diet after Discharge Diet after Discharge: Regular Contacting the DRAruna after DC Call your doctor for: Concerns you may have Follow-Up Follow up with: Dr. Crowley in 1 week NAVI CROWLEY Jr, MD Feb 20, 2021 16:04
[2021-02-20 16:40] VITALS: BP 112/53
--- NOTE | 2021-02-20 16:57 | NUR ---
Discharge Note: RUPERTO,DECEMBER M3 SO LND Discharge instructions and discharge home medications reviewed with Patient and a copy given. All questions have been answered and understanding verbalized. The following instructions and handouts were given: Diet- Hyperemesis Gravidarum Hyperemesis Gravidarum Discontinued lines and drains: 20g right hand peripheral IV removed. Catheter tip intact. Bandage applied. Patient discharged home with self-care via ambulation with steady gait to private vehicle.
== END 2021-02-20 16:45 | disposition home or self-care (01) | DRG 832 ==
LOC: 3 SO LND 12:24 → OBSVTOIN 12:24 → 3 SO LND 14:53
PROVIDERS: ADMIT Obstetrics & Gynecology; ATTEND Obstetrics & Gynecology
DX: O21.1 Hyperemesis gravidarum with metabolic disturbance (principal); O23.02 Infections of kidney in pregnancy, second trimester; O99.282 Endocrine, nutritional and metabolic diseases complicating pregnancy, second trimester; Z3A.21 21 weeks gestation of pregnancy
CPT/HCPCS: 36415; 80048; 80053; 81001; 82150; 83690; 85025; 87086; C9113; J0696; J2405; J2765; J7120; J7121; G0378

== ENCOUNTER → 2021-02-27 | Outpatient (CLI) | payer OTHER ==
[2021-02-20 16:40] VITALS: BP 112/53
[~2021-02-27] MED LIST changes: +METO5VIA4 PO; +ONDA4TAB7 PO; +PYRI50CA PO; +Pantoprazole Iv Push PO
== END ==
LOC: SPEC 16:10
PROVIDERS: ATTEND Obstetrics & Gynecology
DX: Z34.92 Encounter for supervision of normal pregnancy, unspecified, second trimester (principal); Z3A.00 Weeks of gestation of pregnancy not specified
CPT/HCPCS: 87086

== ENCOUNTER 2021-03-10 12:14 | Observation (INO) | payer OTHER ==
[2021-03-10] MEDS ORDERED: IV RINGERS,LACTATED 1000ML 1,000 ML IV SCH (13:00)
[2021-03-10] MEDS ORDERED: MAGNESIUM HYDROXIDE 2,400 MG/30 ML ORAL.SUSP. PO ONE (13:00)
[2021-03-10] MEDS ORDERED: SODIUM PHOSPHATES 19/7GM 133 ML ENEMA. PR ONE (13:00)
[2021-03-10 13:15] LABS: BILIRUBIN,URINE SMALL (NEG); CLARITY,URINE CLOUDY; COLOR,URINE AMBER; NITRITE,URINE NEGATIVE (NEG); PROTEIN,URINE NEGATIVE (NEG-TRACE)
[2021-03-10 13:31] LABS: BACTERIA,URINE MANY /HPF (0-FEW); WBC,URINE 20-40 /HPF (0-4)
== END 2021-03-10 16:05 | disposition home or self-care (01) ==
LOC: 3 SO LND 12:14
PROVIDERS: ADMIT Obstetrics & Gynecology; ATTEND Obstetrics & Gynecology
DX: O99.891 Other specified diseases and conditions complicating pregnancy (principal); M54.9 Dorsalgia, unspecified; O26.892 Other specified pregnancy related conditions, second trimester; K59.00 Constipation, unspecified; O62.9 Abnormality of forces of labor, unspecified; Z3A.24 24 weeks gestation of pregnancy
CPT/HCPCS: 59025; 81001; 87086; G0378; G0379

== ENCOUNTER 2021-05-29 12:12 | Observation (INO) | payer OTHER ==
[2021-05-29] MEDS ORDERED: IV RINGERS,LACTATED 1000ML 1,000 ML IV SCH (12:30)
[2021-05-29 12:47] LABS: BILIRUBIN,URINE NEGATIVE (NEG); CLARITY,URINE CLEAR; COLOR,URINE YELLOW; NITRITE,URINE NEGATIVE (NEG); PH,URINE 6.5 (<5.0-8.0); PROTEIN,URINE NEGATIVE (NEG-TRACE); UROBILINOGEN,URINE 0.2 mg/dL (0.2 mg/dL)
[2021-05-29 13:00] LABS: BACTERIA,URINE FEW /HPF (0-FEW); RBC,URINE >40 /HPF (0-2)
[2021-05-29] MEDS ORDERED: hydrOXYzine 25 MG TABLET PO PRN (14:00)
== END 2021-05-29 14:40 | disposition home or self-care (01) ==
LOC: 3 SO LND 12:12
PROVIDERS: ADMIT Obstetrics & Gynecology; ATTEND Obstetrics & Gynecology
DX: O99.891 Other specified diseases and conditions complicating pregnancy (principal); M54.9 Dorsalgia, unspecified; Z3A.36 36 weeks gestation of pregnancy
CPT/HCPCS: 59025; 81001; 87086; G0378; G0379

== ENCOUNTER → 2021-06-03 | Outpatient (CLI) | payer OTHER | LOC: SPEC 17:47 | PROVIDERS: ATTEND Obstetrics & Gynecology | DX: Z34.93 Encounter for supervision of normal pregnancy, unspecified, third trimester (principal); Z3A.00 Weeks of gestation of pregnancy not specified | CPT/HCPCS: 87653 ==

== ENCOUNTER 2021-06-10 11:21 | Observation (INO) | payer OTHER ==
[2021-06-10] MEDS ORDERED: IV RINGERS,LACTATED 1000ML 1,000 ML IV PRN (11:45)
[2021-06-10] MEDS ORDERED: BUTALB/APAP/CAFEIN 50/325/40MG TABLET. PO PRN (12:15)
[2021-06-10 12:48] LABS: HEMATOCRIT 34.9 % (36.0-47.0); HEMOGLOBIN 11.5 g/dL (12.0-15.5); RED BLOOD COUNT 3.89 x10^6/uL (3.50-5.40); RED CELL DISTRIBUTION WIDTH 12.9 % (11.5-14.5); WHITE BLOOD COUNT 12.3 x10^3/uL (4.0-11.0)
[2021-06-10 13:13] LABS: BILIRUBIN,URINE NEGATIVE (NEG); CLARITY,URINE CLOUDY; COLOR,URINE YELLOW; NITRITE,URINE NEGATIVE (NEG); PROTEIN,URINE NEGATIVE (NEG-TRACE)
[2021-06-10 13:22] LABS: ALBUMIN 2.3 g/dL (3.4-5.0); ALBUMIN/GLOBULIN RATIO 0.6 (1.0-1.7); CREATININE 0.5 mg/dL (0.6-1.0); GFR 150.3; POTASSIUM 3.4 mmol/L (3.5-5.1); TOTAL BILIRUBIN 0.2 mg/dL (0.2-1.0); TOTAL PROTEIN 5.9 g/dL (6.4-8.2); URIC ACID 3.8 mg/dL (2.6-6.0)
[2021-06-10 13:25] LABS: AMORPHOUS SEDIMENT,UR PRESENT /HPF; BACTERIA,URINE FEW /HPF (0-FEW); RBC,URINE 0 /HPF (0-2); WBC,URINE 0 /HPF (0-4)
[2021-06-10 13:50] LABS: CREATININE,RANDOM URINE 110.7 mg/dL (Not Establ.)
== END 2021-06-10 14:39 | disposition home or self-care (01) ==
LOC: 3 SO LND 11:21
PROVIDERS: ADMIT Obstetrics & Gynecology; ATTEND Obstetrics & Gynecology
DX: O26.893 Other specified pregnancy related conditions, third trimester (principal); R51.9 Headache, unspecified; Z79.899 Other long term (current) drug therapy; Z3A.37 37 weeks gestation of pregnancy
CPT/HCPCS: 36415; 59025; 80053; 81001; 82570; 83615; 84156; 84550; 85027; 87086; G0378; G0379

== ENCOUNTER 2021-06-17 10:50 | Observation (INO) | payer OTHER ==
[2021-06-17] MEDS ORDERED: IV RINGERS,LACTATED 1000ML 1,000 ML IV PRN (11:30)
[2021-06-17 12:14] LABS: BILIRUBIN,URINE NEGATIVE (NEG); CLARITY,URINE CLEAR; COLOR,URINE YELLOW; NITRITE,URINE NEGATIVE (NEG); PROTEIN,URINE NEGATIVE (NEG-TRACE); UROBILINOGEN,URINE 0.2 mg/dL (0.2 mg/dL)
[2021-06-17 12:26] LABS: BACTERIA,URINE MODERATE /HPF (0-FEW); RBC,URINE OCC /HPF (0-2)
== END 2021-06-17 12:15 | disposition home or self-care (01) ==
LOC: 3 SO LND 10:50
PROVIDERS: ADMIT Obstetrics & Gynecology; ATTEND Obstetrics & Gynecology
DX: O36.8330 Maternal care for abnormalities of the fetal heart rate or rhythm, third trimester, not applicable or unspecified (principal); Z20.822 Contact with and (suspected) exposure to COVID-19; Z3A.38 38 weeks gestation of pregnancy
CPT/HCPCS: 59025; 81001; 87086; 87426; G0378; G0379; U0003; U0005

== ENCOUNTER 2021-06-18 16:29 | Inpatient (IN) | payer OTHER ==
[~2021-06-18] VITALS: Ht 165.1 cm; Wt 96.0 kg
[2021-06-18] MEDS ORDERED: LIDOCAINE 1% PF 30 ML VIAL. INJ PRN (16:45)
[2021-06-18] MEDS ORDERED: BUTORPHANOL 2 MG/ML VIAL. IVP PRN ×2 (16:45)
[2021-06-18] MEDS ORDERED: IBUPROFEN 400 MG TABLET. PO PRN (16:45)
[2021-06-18] MEDS ORDERED: 0.9 % SODIUM CHLORIDE 10 ML DISP.SYRIN. IV PRN (16:45)
[2021-06-18] MEDS ORDERED: ACETAMINOPHEN 325 MG TABLET. PO PRN (16:45)
[2021-06-18] MEDS ORDERED: ONDANSETRON PF 4 MG/2 ML VIAL. IVP PRN (16:45)
[2021-06-18] MEDS ORDERED: TERBUTALINE 1 MG/ML VIAL. SQ PRN (16:45)
[2021-06-18] MEDS ORDERED: CITRIC ACID/SODIUM CITRATE 30 ML SOLUTION. PO PRN (16:45)
[2021-06-18] MEDS ORDERED: OXYTOCIN 30 UNIT/500 ML PREMIX 500 ML IV PRN ×2 (16:45)
[2021-06-18] MEDS ORDERED: DINOPROSTONE 10 MG SUPP.VAG VG ONE (16:45)
[2021-06-18 16:50] VITALS: BP 130/85
[2021-06-18 17:06] LABS: BILIRUBIN,URINE NEGATIVE (NEG); CLARITY,URINE CLEAR; COLOR,URINE YELLOW; NITRITE,URINE NEGATIVE (NEG); PROTEIN,URINE NEGATIVE (NEG-TRACE); UROBILINOGEN,URINE 0.2 mg/dL (0.2 mg/dL)
[2021-06-18 17:16] LABS: BACTERIA,URINE FEW /HPF (0-FEW); RBC,URINE OCC /HPF (0-2); WBC,URINE OCC /HPF (0-4)
[2021-06-18] MEDS: IV RINGERS,LACTATED 1000ML 1,000 ML IV SCH (18:02)
[2021-06-18 18:13] LABS: BASO # 0.1 x10^3/uL (0.0-0.2); BASO % 0 % (0-3); EOS % 0 % (0-3); HEMATOCRIT 34.3 % (36.0-47.0); HEMOGLOBIN 11.7 g/dL (12.0-15.5); LYMPH % 21 % (24-48); MEAN CORPUSCULAR HEMOGLOBIN 30 pg (25-35); MEAN CORPUSCULAR HGB CONC 34 g/dL (31-37); MEAN CORPUSCULAR VOLUME 88 fL (79-100); MONO # 1.3 x10^3/uL (0.0-1.1); MONO % 10 % (0-9); NEUT # 9.5 x10^3/uL (1.8-7.7); NEUT % 69 % (31-73); PLATELET COUNT 321 x10^3/uL (140-400); RED BLOOD COUNT 3.88 x10^6/uL (3.50-5.40); RED CELL DISTRIBUTION WIDTH 12.6 % (11.5-14.5); WHITE BLOOD COUNT 13.9 x10^3/uL (4.0-11.0)
[2021-06-18] MEDS ORDERED: fentaNYL PF VIAL 100 MCG/2 ML VIAL IVP PRN ×2 (18:30)
[2021-06-19] MEDS: AMPICILLIN SODIUM 2 GM in IV NORMAL SALINE 100ML 100 ML IV SCH ×2 (00:20→23:20)
[2021-06-19] MEDS: IV RINGERS,LACTATED 1000ML 1,000 ML IV SCH ×3 (00:45→12:49)
[2021-06-19] MEDS ORDERED: ROPIVacaine 0.2% PF 10 ML VIAL. ONE ×2 (11:53→12:00)
[2021-06-19] MEDS ORDERED: L&D EPIDURAL SYRINGE 50 ML ONE (11:53)
[2021-06-19] MEDS ORDERED: L&D EPIDURAL 50 ML SYRINGE. ONE (12:00)
[2021-06-19] MEDS ORDERED: IV RINGERS,LACTATED 1000ML 1,000 ML IV ONE (12:15)
[2021-06-19] MEDS ORDERED: fentaNYL PF VIAL 100 MCG/2 ML VIAL EPID ONE (12:15)
[2021-06-19] MEDS ORDERED: NALOXONE 0.4 MG/ML VIAL. IV PRN (12:15)
[2021-06-19] MEDS ORDERED: ePHEDrine PF IN SALINE 50 MG/10 ML SYRINGE. IV PRN (12:15)
[2021-06-19] MEDS ORDERED: ONDANSETRON PF 4 MG/2 ML VIAL. IV PRN (12:15)
--- NOTE | 2021-06-19 13:03 | PDOC1 ---
RETAIL OFFICE ASSOCIATE H&P Date of Admission: Date of Admission: Jun 18, 2021 at 16:29 History of Present Illness: EDC: 06/25/21 LMP: 09/17/20 26y @ 39.1 by 11wk u/s presents for indxn of labor. The pts BP has been increased over the last couple of wks. She has remained without s/s of preeclampsia. Her labs have been reassuring as well. PMH: Denies PSH: Lap Gaby , D&C, L/S 2018, Tonsils Meds: PNV, Tylenol All: Morphine OBHx: G1 SH: no tob, no EtOH FH: noncontributory Allergies: Coded Allergies: morphine (Verified Allergy, Intermediate, 02/19/21) Physical Exam: Vital Signs: Vital Signs Date Time Temp Pulse Resp B/P (MAP) Pulse Ox O2 Delivery O2 Flow Rate FiO2 06/19/21 09:50 20 06/18/21 16:50 97.7 86 130/85 (100) Room Air 97.7 PE: GENERAL: No apparent distress. Alert and oriented. HEENT: Head normocephalic, atraumatic. NECK: Supple LUNGS: Clear to auscultation. HEART: RRR, S1, S2 present, pulses intact ABDOMEN: Soft, positive bowel sounds. EXTREMITIES: No cyanosis or edema. NEUROLOGIC: Normal speech, normal tone PSYCHIATRIC: Normal affect, normal mood. SKIN: No ulceration. FHT: 150's +acels/no decels/mLTV [place]: 1-5 min SVE: 3/50/-3 Labs: Laboratory Tests Test 06/18/21 16:58 06/18/21 17:40 Urine Collection Type Unknown Urine Color Yellow Urine Clarity Clear Urine pH 7.0 (<5.0-8.0) Urine Specific [place] 1.010 (1.000-1.030) Urine Protein Negative mg/dL (NEG-TRACE) Urine Glucose (UA) Negative mg/dL (NEG) Urine Ketones (Stick) Negative mg/dL (NEG) Urine Blood Negative (NEG) Urine Nitrite Negative (NEG) Urine Bilirubin Negative (NEG) Urine Urobilinogen Dipstick 0.2 mg/dL (0.2 mg/dL) Urine Leukocyte Esterase Negative (NEG) Urine RBC Occ /HPF (0-2) Urine WBC Occ /HPF (0-4) Urine Squamous Epithelial Cells Mod /LPF Urine Bacteria Few /HPF (0-FEW) Urine Mucus Slight /LPF White Blood Count 13.9 x10^3/uL (4.0-11.0) H Red Blood Count 3.88 x10^6/uL (3.50-5.40) Hemoglobin 11.7 g/dL (12.0-15.5) L Hematocrit 34.3 % (36.0-47.0) L Mean Corpuscular Volume 88 fL (79-100) Mean Corpuscular Hemoglobin 30 pg (25-35) Mean Corpuscular Hemoglobin Concent 34 g/dL (31-37) Red Cell Distribution Width 12.6 % (11.5-14.5) Platelet Count 321 x10^3/uL (140-400) Neutrophils (%) (Auto) 69 % (31-73) Lymphocytes (%) (Auto) 21 % (24-48) L Monocytes (%) (Auto) 10 % (0-9) H Eosinophils (%) (Auto) 0 % (0-3) Basophils (%) (Auto) 0 % (0-3) Neutrophils # (Auto) 9.5 x10^3/uL (1.8-7.7) H Lymphocytes # (Auto) 3.0 x10^3/uL (1.0-4.8) Monocytes # (Auto) 1.3 x10^3/uL (0.0-1.1) H Eosinophils # (Auto) 0.0 x10^3/uL (0.0-0.7) Basophils # (Auto) 0.1 x10^3/uL (0.0-0.2) Treponema pallidum Antibody Nonreactive (Nonreactive) Laboratory Tests 06/18/21 17:40 Laboratory Tests 06/18/21 17:40 Assessment & Plan: A/P 26y @ 39.1 by 11wk u/s 1.) PRIME 2.) Indxn cervidil placed at , on Pit, AROM/cl 3.) GHTN - BP nml today 4.) N/V - hospitalized 02/17-02/20. On scheduled Reglan (daily) and Zofran prn 5.) Rub NI 6.) LSIL pap - s/p colpo, previous provider considered repeating colpo PP, may just repeat pap 7.) Elevated GTT - 1 of 4 values of 3hr GTT elevated 8.) TDAP given 04/11/21 9.) Fetus cat I FHT 10.) GBS neg 11.) Girl MARK Michelle MD Jun 19, 2021 13:03
[2021-06-19] MEDS: L&D EPIDURAL SYRINGE 50 ML EPID PRN ×3 (15:13→21:24)
[2021-06-19] MEDS ORDERED: ACETAMINOPHEN 500 MG TABLET PO ONE (19:15)
[2021-06-19] MEDS ORDERED: AMPICILLIN SODIUM 2 GM in IV NORMAL SALINE 100ML 100 ML IV SCH (21:45)
[2021-06-19] MEDS ORDERED: NORMAL SALINE IV SCH (22:00)
[2021-06-19] MEDS ORDERED: GENTAMICIN SULFATE IV SCH (22:00)
--- NOTE | 2021-06-20 01:09 | PDOC4 ---
VAGINAL DELIVERY DATE DATE: 06/20/21 TIME: 01:08 TIME Patient delivered a viable female over intact perineum at 0057. Wt 6 lb 8 oz. Apgars 7/9. Placenta delivered spontaneously, intact with 3VC. No lacerations noted. Good hemostasis noted. 20 U of Pit given with IVF. EBL 200 cc. WEIGHT Weight [ ] MARK CODY MD Jun 20, 2021 01:09
[2021-06-20] MEDS ORDERED: DOCUSATE SODIUM 100 MG CAPSULE. PO PRN (01:15)
[2021-06-20] MEDS ORDERED: MAGNESIUM HYDROXIDE 2,400 MG/30 ML ORAL.SUSP. PO PRN (01:15)
[2021-06-20] MEDS ORDERED: diphenhydrAMINE HCL 25 MG CAPSULE PO PRN (01:15)
[2021-06-20] MEDS ORDERED: 0.9 % SODIUM CHLORIDE 10 ML DISP.SYRIN. IV PRN (01:15)
[2021-06-20] MEDS ORDERED: OXYTOCIN 30 UNIT/500 ML PREMIX 500 ML IV PRN (01:15)
[2021-06-20] MEDS ORDERED: TDaP (Adacel) per PROTOCOL. MC PRN (01:15)
[2021-06-20] MEDS ORDERED: HYDROCORTISONE 1% TOPICAL OINTMENT 30GM TUBE. TP PRN (01:15)
[2021-06-20] MEDS ORDERED: MAG HYDROX/ALUMINUM HYD/SIMETH 30 ML ORAL.SUSP PO PRN (01:15)
[2021-06-20] MEDS ORDERED: BENZOCAINE 20% TOPICAL AEROSOL SPRAY 57GM CAN. TP PRN (01:15)
[2021-06-20] MEDS ORDERED: PHENYLEPH/MINERAL OIL/PETROLAT RECTAL OINTMENT TUBE. RC PRN (01:15)
[2021-06-20] MEDS ORDERED: SIMETHICONE 80 MG TAB.CHEW PO PRN (01:15)
[2021-06-20] MEDS ORDERED: MMR per PROTOCOL. MC PRN (01:15)
[2021-06-20] MEDS ORDERED: ACETAMINOPHEN 325 MG TABLET. PO PRN (01:15)
[2021-06-20] MEDS ORDERED: ZOLPIDEM 5 MG TABLET. PO PRN (01:15)
[2021-06-20 03:00] VITALS: BP 120/59
[2021-06-20 06:00] VITALS: BP 123/71
[2021-06-20] MEDS: IBUPROFEN 400 MG TABLET. PO PRN ×2 (06:13→15:07)
[2021-06-20 07:32] VITALS: BP 141/74
[2021-06-20] MEDS: PRENATAL MULTIVITAMIN TABLET. PO SCH (09:00)
[2021-06-20 12:51] VITALS: BP 133/75
[2021-06-20 17:52] VITALS: BP 129/68
[2021-06-20] MEDS: oxyCODONE/APAP 5/325 1 TAB TABLET PO PRN (19:44)
[2021-06-20 20:37] VITALS: BP 128/81
[2021-06-21] MEDS: IBUPROFEN 400 MG TABLET. PO PRN ×3 (03:21→16:58)
[2021-06-21 03:30] VITALS: BP 123/77
[2021-06-21 07:40] LABS: HEMATOCRIT 32.9 % (36.0-47.0); HEMOGLOBIN 10.9 g/dL (12.0-15.5); RED BLOOD COUNT 3.69 x10^6/uL (3.50-5.40); RED CELL DISTRIBUTION WIDTH 12.5 % (11.5-14.5); WHITE BLOOD COUNT 10.4 x10^3/uL (4.0-11.0)
[2021-06-21] MEDS ORDERED: FERROUS SULFATE 325 MG TABLET. PO SCH (08:00)
[2021-06-21] MEDS: PRENATAL MULTIVITAMIN TABLET. PO SCH (09:08)
[2021-06-21 09:37] VITALS: BP 115/73
--- NOTE | 2021-06-21 09:52 | NUR ---
Patient noted amb in banks this am. 0715 Patient states " Did not sleep well d/t baby's condition and worried". SO at bed side at that time. Patient denies needs, c/o slight cramping denying medication at that time. 0910 Ibuprofen 800 mg po given for cramping, rates 5/10. family leaves to allow patient to rest. Saline Lock D'c'd with catheter intact, pressure applied and secured with pressure bandage. Lights off and patient resting.
--- NOTE | 2021-06-21 11:33 | PDOC ---
STILL PHOTOGRAPHER PROGRESS NOTE Date of Service: DATE: 06/21/21 TIME: 11:32 Subjective: Pt with good pain control. Erick PO. Voiding. Minimal lochia. Objective: Vital Signs: Vital Signs Date Time Temp Pulse Resp B/P (MAP) Pulse Ox O2 Delivery O2 Flow Rate FiO2 06/20/21 07:32 98.6 77 18 141/74 (96) Room Air 98.6 06/21/21 09:37 96 Vital Signs Date Time Temp Pulse Resp B/P (MAP) Pulse Ox O2 Delivery O2 Flow Rate FiO2 06/21/21 09:37 98.5 78 20 115/73 (87) 96 Room Air 98.5 Labs: Laboratory Tests Test 06/21/21 07:10 White Blood Count 10.4 x10^3/uL (4.0-11.0) Red Blood Count 3.69 x10^6/uL (3.50-5.40) Hemoglobin 10.9 g/dL (12.0-15.5) L Hematocrit 32.9 % (36.0-47.0) L Mean Corpuscular Volume 89 fL (79-100) Mean Corpuscular Hemoglobin 30 pg (25-35) Mean Corpuscular Hemoglobin Concent 33 g/dL (31-37) Red Cell Distribution Width 12.5 % (11.5-14.5) Platelet Count 254 x10^3/uL (140-400) Laboratory Tests 06/21/21 07:10 Laboratory Tests 06/21/21 07:10 Physical Exam: GENERAL: No apparent distress. Alert and oriented. HEENT: Head normocephalic, atraumatic. NECK: Supple LUNGS: Clear to auscultation. HEART: RRR, S1, S2 present, pulses intact ABDOMEN: Soft, positive bowel sounds. EXTREMITIES: No cyanosis or edema. NEUROLOGIC: Normal speech, normal tone PSYCHIATRIC: Normal affect, normal mood. SKIN: No ulceration. FFNT below umb No C/C/E Assessment & Plan: A/P 26y PPD #1 s/p 1.) PP doing well 2.) GHTN BPs mostly nml throughout labor, a few milds; nml since delivery 4.) IAI increased tempt with tachycardia around 2134 (06/19), started on Amp/Gent. Stopped after delivery. AF since. 5.) N/V - hospitalized 02/17-02/20. Resolved. 5.) Rub NI 6.) LSIL pap - s/p colpo, previous provider considered repeating colpo PP, may just repeat pap 7.) TDAP given 04/11/21 8.) Girl Brentley 9.) Hgb 11.7 -> 10.9 10.) Cont PP care MARK CODY MD Jun 21, 2021 11:33
[2021-06-21 17:00] VITALS: BP 112/68
[2021-06-21 19:40] VITALS: BP 122/65
[2021-06-22] MEDS: IBUPROFEN 400 MG TABLET. PO PRN ×2 (01:09→11:42)
[2021-06-22] MEDS: oxyCODONE/APAP 5/325 1 TAB TABLET PO PRN (05:49)
[2021-06-22 06:09] VITALS: BP 117/76
[2021-06-22] MEDS: PRENATAL MULTIVITAMIN TABLET. PO SCH (09:09)
[2021-06-22 10:21] VITALS: BP 139/78
--- NOTE | 2021-06-22 11:18 | PDOC ---
COOK SHORT ORDER PROGRESS NOTE Date of Service: DATE: 06/22/21 TIME: 11:18 Subjective: Pt with good pain control. Erick PO. Voiding. Minimal lochia Objective: Vital Signs: Vital Signs Date Time Temp Pulse Resp B/P (MAP) Pulse Ox O2 Delivery O2 Flow Rate FiO2 06/21/21 09:24 Room Air 06/21/21 09:37 98.5 78 20 115/73 (87) 96 98.5 Vital Signs Date Time Temp Pulse Resp B/P (MAP) Pulse Ox O2 Delivery O2 Flow Rate FiO2 06/22/21 10:21 97.7 74 18 139/78 (98) 98 Room Air 97.7 Physical Exam: GENERAL: No apparent distress. Alert and oriented. HEENT: Head normocephalic, atraumatic. NECK: Supple LUNGS: Clear to auscultation. HEART: RRR, S1, S2 present, pulses intact ABDOMEN: Soft, positive bowel sounds. EXTREMITIES: No cyanosis or edema. NEUROLOGIC: Normal speech, normal tone PSYCHIATRIC: Normal affect, normal mood. SKIN: No ulceration. FFNT below umb No C/C/E Assessment & Plan: A/P 26y PPD #2 s/p 1.) PP doing well 2.) GHTN BPs mostly nml throughout labor, a few milds; nml since delivery 4.) IAI increased tempt with tachycardia around 2134 (06/19), started on Amp/Gent. Stopped after delivery. AF since. 5.) N/V - hospitalized 02/17-02/20. Resolved. 5.) Rub NI 6.) LSIL pap - s/p colpo, previous provider considered repeating colpo PP, may just repeat pap 7.) TDAP given 04/11/21 8.) Girl Brentley 9.) Hgb 11.7 -> 10.9 10.) D/c home MARK CODY MD Jun 22, 2021 11:18
[2021-06-22] MEDS ORDERED: DOCU-109 PO (11:28)
[2021-06-22] MEDS ORDERED: IBUP-1060 PO (11:28)
[2021-06-22] MEDS ORDERED: MEASLES, MUMPS & RUBELLA VACC 0.5 ML VIAL. VAX SQ ONE (12:00)
[2021-06-22] MEDS ORDERED: FLU VACC QUAD 21-22 (6MOS+) PF 0.5 ML SYRINGE. VAX IM ONE (12:00)
--- NOTE | 2021-06-22 12:23 | DS ---
DATE OF DISCHARGE: 06/22/2021 ADMISSION DIAGNOSES: 1. Intrauterine at 39 weeks and 1 day by 11-week ultrasound. 2. Induction of labor. 3. Gestational hypertension. 4. Nausea and vomiting throughout . 5. Rubella nonimmune. 6. LSIL Pap. 7. Elevated glucose tolerance test with a quant of 4 values of the 3-hour glucose tolerance test elevated. 8. Status post Tdap. 9. GBS negative. DISCHARGE DIAGNOSES: 1. Intrauterine at 39 weeks and 1 day by 11-week ultrasound. 2. Induction of labor. 3. Gestational hypertension. 4. Nausea and vomiting throughout . 5. Rubella nonimmune. 6. LSIL Pap. 7. Elevated glucose tolerance test with a quant of 4 values of the 3-hour glucose tolerance test elevated. 8. Status post Tdap. 9. GBS negative. PROCEDURE: Spontaneous vaginal delivery. BRIEF HOSPITAL COURSE: The patient is a 26-year-old 1, para 0, who presented to Labor and Delivery at 39 weeks and 1 day by 11-week ultrasound for induction of labor. The patient's blood pressures have been increasing over the last couple of weeks and the patient remained without signs or symptoms of preeclampsia and all her labs have been reassuring. The patient had a Cervidil placed on 06/18/2021. The following morning, the Cervidil was removed and the patient was started on Pitocin. The patient ultimately reached complete in the morning of 06/20/2021 and delivered by vaginal delivery. See delivery note for full detail. By day #2, the patient was meeting all discharge criteria and subsequently discharged home. The infant was staying so mom was made a boarder. The patient was also given rubella prior to her discharge. Of note, the patient's hemoglobin on admission was 11.7 and after discharge was 10.9. DISCHARGE INSTRUCTIONS: The patient was told not to lift anything greater than 20 pounds, have pelvic rest for 6 weeks, and not to drive on narcotics. CALL IF: The patient was to call if she had fevers, chills, nausea, vomiting, abdominal pain or any additional questions or concerns. FOLLOWUP APPOINTMENT: The patient was to follow up on 07/29/2021 at 10:30 a.m. for a visit. DISCHARGE MEDICATIONS: The patient was given a prescription for Motrin 800 mg, 30 pills and Colace 100 mg, 30 pills. MM/LUZMARIA DR: Tracy TID: [id number]
[2021-06-22 13:30] VITALS: BP 139/78
[2021-06-22 16:41] VITALS: BP 125/80
== END 2021-06-22 16:43 | disposition home or self-care (01) | DRG 807 ==
LOC: 3 SO LND 16:29
PROVIDERS: ADMIT Obstetrics & Gynecology; ATTEND Obstetrics & Gynecology
PROC: 10E0XZZ Delivery of Products of Conception, External Approach (ICD-10-PCS; principal; 2021-06-18)
DX: O13.4 Gestational [pregnancy-induced] hypertension without significant proteinuria, complicating childbirth (principal); Z37.0 Single live birth; Z3A.39 39 weeks gestation of pregnancy
CPT/HCPCS: 36415; 81001; 85025; 85027; 86592; 86850; 86900; 86901; 90471; 90686; 90707; A6258; C1755; J0290; J1580; J2405; J2590; J2795; J3010; J7120; G0378

== ENCOUNTER → 2021-07-29 | Outpatient (CLI) | payer OTHER ==
[~2021-07-29] MED LIST changes: +DOCU-109 PO; +IBUP-1060 PO
== END ==
LOC: SPEC 11:20
PROVIDERS: ATTEND Obstetrics & Gynecology
DX: R87.612 Low grade squamous intraepithelial lesion on cytologic smear of cervix (LGSIL) (principal)
CPT/HCPCS: 88175